=== PATIENT | male | born 1995 | race Caucasian/White ===

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

== ENCOUNTER 2017-01-02 07:07 | Emergency (ER) | payer OTHER ==
[~2017-01-02] VITALS: Ht 188 cm; Wt 169.4 kg
[2017-01-02 07:25] VITALS: BP 129/72
--- NOTE | 2017-01-02 07:33 | NUR ---
Patient ambulated to bed 4. RN evaluating patient at bedside.
--- NOTE | 2017-01-02 08:18 | NUR ---
AAO PT BEING EVALUATED BY DR COLVIN WITH FAMILY AT BEDSIDE
[2017-01-02] MEDS ORDERED: LIDOCAINE 1% 500 MG/50 ML VIAL INJ ONE (08:20)
[2017-01-02 10:28] VITALS: BP 143/83
--- NOTE | 2017-01-02 10:28 | NUR ---
Patient discharged with v/s stable. Written and verbal after care instructions given and explained. Patient verbalized understanding. Ambulatory with steady gait. All questions addressed prior to discharge. Advised to follow up with PMD.
== END 2017-01-02 10:28 | disposition home or self-care (01) ==
LOC: MED 07:07
DX: T16.1XXA Foreign body in right ear, initial encounter (principal); R03.0 Elevated blood-pressure reading, without diagnosis of hypertension; X58.XXXA Exposure to other specified factors, initial encounter; Y93.89 Activity, other specified; Y92.89 Other specified places as the place of occurrence of the external cause; Y99.8 Other external cause status
CPT/HCPCS: 69200; 99284; J2001